=== PATIENT | female | born 1990 | race Caucasian/White ===

== ENCOUNTER 2022-02-03 14:31 | Emergency (ER) | payer OTHER ==
[~2022-02-03] VITALS: Ht 160 cm; Wt 85.3 kg
[2022-02-03] MEDS ORDERED: ZITHROMAX500 MG PO (18:20)
[2022-02-03] MEDS ORDERED: TUSNEL LIQUID178 ML PO (18:20)
[2022-02-03] MEDS ORDERED: XOPENEX0.63 MG/3 IH (18:20)
== END 2022-02-03 19:19 | disposition home or self-care (01) ==
LOC: ER 14:31
DX: J06.9 Acute upper respiratory infection, unspecified (principal); Z20.822 Contact with and (suspected) exposure to COVID-19